=== PATIENT | female | born 2000 | race African-American/Black ===

== ENCOUNTER 2023-07-30 10:19 | Emergency (ER) | payer SELFPAY ==
[2023-07-30 10:29] VITALS: BP 112/79
[2023-07-30 10:49] VITALS: BMI 20.3
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
[2023-07-30] MEDS: MOTRIN 600 MG PO (11:29)
[2023-07-30] MEDS: TYLENOL 650 MG PO (11:29)
--- NOTE | 2023-07-30 11:35 | EDRN ---
Reviewed discharge instructions with patient. Verbalized understanding. Ambukated with steady gait to the lobby.
[2023-07-30 11:37] VITALS: BP 110/70
== END 2023-07-30 11:38 | disposition home or self-care (01) ==
LOC: EMR 10:19
PROVIDERS: EMERGENCY PHYSICIAN Student in an Organized Health Care Education/Training Program
DX: S06.0X0A Concussion without loss of consciousness, initial encounter (principal); S16.1XXA Strain of muscle, fascia and tendon at neck level, initial encounter; V89.2XXA Person injured in unspecified motor-vehicle accident, traffic, initial encounter
CPT/HCPCS: 99283